=== PATIENT | male | born 1970 | race Hispanic/Latino ===

== ENCOUNTER 2019-09-02 12:15 | Emergency (ER) | payer OTHER ==
--- NOTE | 2019-09-02 12:23 | Emergency Department Report ---
Blank Doc - Documentation Documentation: 49-year-old male that presents with uncontrolled HTN and was sent after DOT ex am. Denies any symptoms. This initial assessment/diagnostic orders/clinical plan/treatment(s) is/are subject to change based on patient's health status, clinical progression and re- assessment by fellow clinical providers in the ED. Further treatment and workup at subsequent clinical providers discretion. Patient/guardians urged not to elope from the ED as their condition may be serious if not clinically assessed and managed. Initial orders include: 1- Patient sent to [facility] for further evaluation and treatment 2- labs 3- UA
[2019-09-02 15:22] LABS: Basophils # (Auto) 0.1 K/mm3 (0.0-0.1); Basophils % (Auto) 0.9 % (0.0-1.8); Eosinophils # (Auto) 0.2 K/mm3 (0.0-0.4); Eosinophils % (Auto) 2.4 % (0.0-4.3); Hematocrit 49.3 % (35.5-45.6); Hemoglobin 16.8 gm/dl (11.8-15.2); Lymphocytes % (Auto) 23.2 % (13.4-35.0); Mean Corpuscular HGB Conc 34 % (32-34); Mean Corpuscular Volume 100 fl (84-94); Monocytes # (Auto) 0.6 K/mm3 (0.0-0.8); Monocytes % (Auto) 7.5 % (0.0-7.3); Platelet Count 269 K/mm3 (140-440); Red Blood Count 4.94 M/mm3 (3.65-5.03); Red Cell Distribution Width 12.7 % (13.2-15.2)
--- NOTE | 2019-09-02 15:34 | Emergency Department Report ---
HPI - General Chief Complaint: High BP Time Seen by Provider: 09/02/19 12:22 - HPI HPI: 49-year-old male presents to the emergency department, sent in by his primary care physician Dr. Santoro, with a complaint of elevated blood pressure. The patient does have a history of hypertension and takes amlodipine compliantly, but his blood pressure was "through the roof" when he was at the clinic earlier today. He denies any headache, vision change, chest pain, shortness of breath and is essentially asymptomatic from this hypertension. He has a past mental history of sleep apnea and uses a CPAP compliantly. He denies any tobacco use, heavy caffeine use. He was not given anything for the hypertension prior to arrival other than his normal home pressure medication of amlodipine 10 mg. ED Past Medical Hx - Past Medical History Previous Medical History?: Yes Hx Hypertension: Yes - Surgical History Past Surgical History?: No - Social History Smoking Status: Never Smoker Substance Use Type: Alcohol - Medications Home Medications: Home Medications Medication Instructions Recorded Confirmed Last Taken Type hydrALAZINE [Apresoline TAB] 10 mg PO Q8H #42 tablet 09/02/19 Unknown Rx ED Review of Systems ROS: Stated complaint: DOC ORDERED/HBP Other details as noted in HPI Comment: All other systems reviewed and negative Constitutional: denies: fever, weakness Eyes: denies: vision change Respiratory: denies: shortness of breath Cardiovascular: denies: chest pain Musculoskeletal: denies: back pain, myalgia Neurological: denies: headache, weakness Physical Exam - Physical Exam Vital Signs: Vital Signs 09/02/19 12:22 Temperature 98.0 F Pulse Rate 91 H Respiratory 18 Rate Blood Pressure 181/113 O2 Sat by Pulse 97 Oximetry Physical Exam: GENERAL: The patient is well-developed well-nourished. HENT: Normocephalic. Atraumatic. Patient has moist mucous membranes. Oropharynx is clear without tonsillar hypertrophy, erythema or exudates. EYES: Extraocular motions are intact. NECK: Supple. Trachea is midline. CHEST/LUNGS: Clear to auscultation. There is no respiratory distress noted. HEART/CARDIOVASCULAR: Regular. There is no tachycardia. There is no murmur. ABDOMEN: Abdomen is soft, nontender. Patient has normal bowel sounds. There is no abdominal distention. SKIN: Skin is warm and dry. NEURO: The patient is awake, alert, and oriented. The patient is cooperative. The patient has no focal neurologic deficits. Normal speech. MUSCULOSKELETAL: There is no tenderness or deformity. There is no limitation range of motion. There is no evidence of acute injury. ED Course Vital Signs 09/02/19 12:22 Temperature 98.0 F Pulse Rate 91 H Respiratory 18 Rate Blood Pressure 181/113 O2 Sat by Pulse 97 Oximetry ED Medical Decision Making - Lab Data Result diagrams: 09/02/19 14:32 09/02/19 14:32 - Medical Decision Making This patient presents with the complaint of very elevated blood pressure while at his primary care physician's office. He says, at that time, he had a systolic of about 240. He presents to the emergency department with a blood pressure of about 180/115. The patient later tells me that he took his a.m. Norvasc, but later took 2 further doses of the Norvasc because "I was feeling bad." He did not receive anything from the primary care physician. His blood pressure came down to a more reasonable level without any further medication or intervention. His labs have been unremarkable. He has no complaints of any headache, shortness of breath, chest pain or any other significant complaints at this time. He is a nonsmoker. He denies drinking any excessive amounts of caffeine or too much salt with his food. He does say that he has been taking some [id number] cough/cold medication that could be a factor in his blood pressure. He will be started on a low dose of hydralazine, to be added to his Norvasc. He will keep a blood pressure log. He will follow up with the primary care physician and will return to the ER with any worsening of his symptoms or any acute distress. Critical Care Time: No Critical care attestation.: If time is entered above; I have spent that time in minutes in the direct care of this critically ill patient, excluding procedure time. ED Disposition Clinical Impression: Hypertension Qualifiers: Hypertension type: essential hypertension Qualified Code(s): I10 - Essential (primary) hypertension Disposition: -01 TO HOME OR SELFCARE Is pt being admited?: No Condition: Stable Instructions: Hypertension (ED) Additional Instructions: Please follow-up with your primary care physician in the next few days. I'm starting you on a second blood pressure medication called hydralazine. It is taken 3 times per day, every 8 hours. Try and stay away from foods that are high in salt and caffeinated products. Keep a blood pressure log. Return to the emergency Department with any worsening of your symptoms or any acute distress. Prescriptions: hydrALAZINE [Apresoline TAB] 10 mg PO Q8H #42 tablet Referrals: Primary Care Provider, Your [Other] - 2-3 Days Forms: Work/School Release Form(ED) Time of Disposition: 16:10
[2019-09-02 15:45] VITALS: BP 153/99
[2019-09-02 15:50] LABS: BUN/Creatinine Ratio 15; Blood Urea Nitrogen 12 mg/dL (9-20); Calcium 9.5 mg/dL (8.4-10.2); Hemolysis Index 10
== END 2019-09-02 16:44 | disposition home or self-care (01) ==
LOC: ED 12:15
DX: I10 Essential (primary) hypertension (principal)
CPT/HCPCS: 36415; 80048; 85025; 93005; 93010